=== PATIENT | male | born 1985 | race Caucasian/White ===

== ENCOUNTER 2016-03-29 13:46 | Emergency (ER) | payer BC ==
[~2016-03-29] VITALS: Ht 177.8 cm; Wt 185.8 kg
[~2016-03-29 13:46] MED LIST: BACTRIM,SEPT1 TABLET PO; Bactrim,Septra DS 80 PO; CLINDAMYCIN HC300 MG PO; HYDROCODON-ACE1 EAC7 PO; IBUPROFEN800 MG PO; KEFLEX500 MG PO; NOHOMEMEDS; PEN-VEE K,VEET500 MG PO; PEPCID40 MG PO; Percocet 5/325,Endoc PO; Tylenol Regular Stre PO; VICODIN,LORT1 TABLET PO; ZOFRAN ODT4 MG PO; [UNRECOGNIZED DRUG - REMARK]
[2016-03-29 15:49] LABS: INFLUENZA A VIRAL ANTIGEN NEGATIVE; INFLUENZA B VIRAL ANTIGEN NEGATIVE
[2016-03-29] MEDS ORDERED: AFRIN,GENASAL D15 ML BOTH NARES (16:02)
[2016-03-29 16:08] VITALS: BP 110/74
== END 2016-03-29 16:14 | disposition home or self-care (01) ==
LOC: EXP 13:46 → EME 13:46 → EXP 16:14
PROVIDERS: Physician Assistant
DX: J06.9 Acute upper respiratory infection, unspecified (principal); F17.200 Nicotine dependence, unspecified, uncomplicated
CPT/HCPCS: 71020; 87502; 99281; 99283

== ENCOUNTER 2016-09-29 11:18 | Emergency (ER) | payer SELFPAY ==
[~2016-09-29] VITALS: Ht 177.8 cm; Wt 188.2 kg
[~2016-09-29 11:18] MED LIST changes: +AFRIN,GENASAL D15 ML BOTH NARES
[2016-09-29] MEDS ORDERED: PERCOCET 5/31 TABLET PO (12:29)
[2016-09-29 12:42] LABS: BASOPHIL COUNT 0.1 K/uL (0-0.1); EOSINOPHIL (%) 1.2 % (0-5); EOSINOPHIL COUNT 0.2 K/uL (0-0.3); IMMATURE GRANULOCYTE (%) 0.4 % (0.0-0.7); IMMATURE GRANULOCYTE COUNT 0.1 K/uL; INSTRUMENT ABS NEUTROPHIL CT 9.6 K/uL; MCH 27.6 PG (29.0-34.0); MCHC 32.8 G/DL (30.0-36.0); MCV 84.2 FL (86-99); MONOCYTE (%) 3.9 % (3-12); MONOCYTE COUNT 0.5 K/uL (0-0.8); NEUTROPHIL (%) 77.9 % (45-76); NEUTROPHIL COUNT 9.6 K/uL (1.8-6.4); PLATELET COUNT 253 K/uL (156-360); RBC DIS.WIDTH-CV 13.2 % (11.8-14.6); RBC DIS.WIDTH-SD 40.5 % (39-53); RED BLOOD COUNT 5.58 M/uL (4.00-5.50); WHITE BLOOD COUNT 12.3 K/uL (4.1-10.2)
[2016-09-29 12:43] VITALS: BP 151/106
[2016-09-29 12:58] LABS: CHLORIDE 104 mEq/L (99-109); POTASSIUM 4.3 mEq/L (3.7-5.4); SODIUM 139 mEq/L (136-147)
[2016-09-29 13:00] LABS: GLUCOSE 90 mg/dL (70-99)
[2016-09-29 13:01] LABS: ANION GAP 14 MEQ/L (2-14)
[2016-09-29 13:02] LABS: TOTAL BILIRUBIN 0.4 mg/dL (0.0-1.0)
[2016-09-29 13:04] LABS: ALKALINE PHOSPHATASE 70 IU/L (3-129); GFR ESTIMATE (CALCULATED) > 59 mL/min/
[2016-09-29 13:05] LABS: UREA NITROGEN (BUN) 15 mg/dL (9-23)
== END 2016-09-29 12:43 | disposition home or self-care (01) ==
LOC: EME 11:18
PROVIDERS: Physician Assistant
PROC: 0H9NXZZ Drainage of Left Foot Skin, External Approach (ICD-10-PCS; principal; 2016-09-29)
DX: S90.822A Blister (nonthermal), left foot, initial encounter (principal); X58.XXXA Exposure to other specified factors, initial encounter; E66.01 Morbid (severe) obesity due to excess calories; F17.200 Nicotine dependence, unspecified, uncomplicated
CPT/HCPCS: 80053; 85025; 87070; 87075; 87205; 99281; 99284

== ENCOUNTER 2016-10-01 11:34 | Emergency (ER) | payer SELFPAY ==
[~2016-10-01] VITALS: Ht 177.8 cm; Wt 190.3 kg
[~2016-10-01 11:34] MED LIST changes: +PERCOCET 5/31 TABLET PO
[2016-10-01 12:32] VITALS: BP 134/63
== END 2016-10-01 12:32 | disposition home or self-care (01) ==
LOC: EME 11:34
DX: S90.822D Blister (nonthermal), left foot, subsequent encounter (principal); Z48.00 Encounter for change or removal of nonsurgical wound dressing
CPT/HCPCS: 99281; 99283

== ENCOUNTER 2016-10-13 09:54 | Emergency (ER) | payer SELFPAY ==
[~2016-10-13] VITALS: Ht 177.8 cm; Wt 191.9 kg
[2016-10-13 09:58] VITALS: BP 140/117
[2016-10-13] MEDS ORDERED: KEFLEX500 MG PO (10:32)
[2016-10-13 10:43] LABS: POINT-OF-CARE METER ID UU13113747
== END 2016-10-13 11:14 | disposition home or self-care (01) ==
LOC: EME 09:54
DX: S90.822A Blister (nonthermal), left foot, initial encounter (principal); F17.200 Nicotine dependence, unspecified, uncomplicated
CPT/HCPCS: 82948; 99281; 99283